=== PATIENT | male | born 1985 | race Caucasian/White ===

== ENCOUNTER 2020-08-10 01:36 | Emergency (ER) | payer OTHER ==
[~2020-08-10] VITALS: Ht 170.2 cm; Wt 72.6 kg
[2020-08-10 01:37] VITALS: Ht 170.2 cm; Wt 72.6 kg
[2020-08-10 02:04] VITALS: BP 144/93
== END 2020-08-10 02:04 ==
LOC: ED 01:36
DX: Z02.89 Encounter for other administrative examinations (principal)